=== PATIENT | male | born 1960 | race Caucasian/White ===

== ENCOUNTER 2021-10-12 09:18 | Day surgery (SDC) | payer BC, MEDICAID ==
[2021-10-07 15:15] LABS: BASOPHILS # (AUTO) 0.1 X10'3 (0-0.2); BASOPHILS % (AUTO) 0.8 % (0-1); EOSINOPHILS # (AUTO) 0.3 X10'3 (0-0.9); LYMPHOCYTES # (AUTO) 1.9 X10'3 (1.1-4.8); LYMPHOCYTES % (AUTO) 20.6 % (21-51); MEAN CORPUSCULAR HEMOGLOBIN 28.1 PG (27.0-31.0); MEAN CORPUSCULAR HGB CONC 33.6 g/dL (33.0-36.5); MEAN CORPUSCULAR VOLUME 83.6 FL (78-98); MONOCYTES # (AUTO) 0.7 X10'3 (0-0.9); MONOCYTES % (AUTO) 7.2 % (2-12); NEUTROPHILS # (AUTO) 6.4 X10'3 (1.8-7.7); NEUTROPHILS % (AUTO) 68.4 % (42-75); PRE OP HEMATOCRIT 42.3 % (42.0-52.0); PRE OP HEMOGLOBIN 14.2 g/dL (14.0-17.9); PRE OP PLATELET COUNT 255 X10'3 (140-440); RED BLOOD COUNT 5.06 X10'6 (4.70-6.10); RED CELL DISTRIBUTION WIDTH 13.4 % (11.5-14.5)
[2021-10-07 15:28] LABS: ALBUMIN 3.7 G/DL (3.4-5.0); ALBUMIN/GLOBULIN RATIO 1.1 (1.1-1.5); ALKALINE PHOSPHATASE 107 IU/L (46-116); BLOOD UREA NITROGEN 19 MG/DL (7-18); BUN/CREATININE RATIO 22.4 (5.4-32.0); CALCIUM 8.6 MG/DL (8.5-10.1); CHLORIDE 103 MMOL/L (99-107); CREATININE 0.85 MG/DL (0.60-1.10); PRE OP ALT 30 U/L (30-65); PRE OP ANION GAP 8 (8-16); PRE OP AST 15 U/L (10-37); PRE OP BILIRUB, TOTAL 0.4 MG/DL (0.0-1.0); PRE OP GLUCOSE 101 MG/DL (70-104); PRE OP POTASSIUM 4.3 MMOL/L (3.4-5.1); PRE OP SODIUM 136 MMOL/L (135-145); TOTAL CARBON DIOXIDE 25.1 MMOL/L (24-32); TOTAL PROTEIN 7.2 G/DL (6.4-8.2); eGFR > 90 ML/MIN
[2021-10-12] VITALS (21 sets, daily range): BP systolic 122–158; BP diastolic 64–94
[~2021-10-12] VITALS: Ht 182.9 cm; Wt 122.0 kg
[2021-10-12] MEDS: potassium cl 20mEq in 1/2 NS 1,000 ML IV SCH ×2 (06:55→14:55)
[~2021-10-12 09:18] MED LIST: HYDROcodone/acetaminophen 10/325mg tab PO PRN; HYDROmorphone 1 mg/ml syringe IV PRN; HYDROmorphone inj. 0.5 MG/0.5 ML DISP.SYRIN IV PRN; NO HOME MEDS; acetaminophen 325mg tablet PO ONE; acetaminophen 325mg tablet PO PRN; bisacodyl 10mg suppository rectal RC PRN; ceFAZolin inj. 3,000 MG in normal saline 100ml IV soln 100 ML IV ONE; ceFAZolin/D5W- 1GM premix 50 ML IV SCH; celeCOXIB 100mg capsule PO ONE; diphenhydrAMINE 25mg capsule PO PRN; famotidine 20mg tablet PO ONE; gabapentin 300mg capsule PO ONE; magnesium hydroxide 30ml (MOM) UD suspension PO PRN; metoclopramide 5 mg/ml inj IV ONE; naloxone 0.4 mg/ml inj IV PRN; ondansetron/PF 4mg/2ml inj IV PRN; oxyCODONE SR 10mg (sust. release) tab -2 tabs (20mg) PO ONE; ringers solution, lacted 1,000 ML IV SCH; tranexamic acid inj. 1,000 MG in 0.7% saline 100 ML PMX IV ONE; vancomycin 1,500 MG in NS 300ml IV soln IV ONE
[2021-10-12] MEDS: ringers solution, lacted 1,000 ML IV SCH ×2 (10:16→18:43)
--- NOTE | 2021-10-12 11:10 | NUR ---
CSM INTACT, OINTMENT AND DVD AND SHOWERS DONE PER MD ORDER.
--- NOTE | 2021-10-12 11:10 | NUR ---
CLARIFICATION, ACTUAL DVD ONLINE DO TO SHORTAGE OF AVAILABILITY
--- NOTE | 2021-10-12 12:00 | NUR ---
correction to previous note on prep, patient did not use ointment, not ordered by physician.
[2021-10-12] MEDS ORDERED: ringers solution, lacted 1,000 ML IV SCH (12:45)
[2021-10-12] MEDS ORDERED: labetalol 20mg/4ml (5mg/ml) syringe IV PRN (12:45)
[2021-10-12] MEDS ORDERED: morphine 2 MG/ML inj. syringe IV PRN (12:45)
[2021-10-12] MEDS ORDERED: hydrALAZINE 20mg/ml inj. IV PRN (12:45)
[2021-10-12] MEDS ORDERED: ondansetron/PF 4mg/2ml inj IV PRN (12:45)
[2021-10-12] MEDS ORDERED: morphine 4 MG/ML inj SYRINge IV PRN (12:45)
[2021-10-12] MEDS ORDERED: fentaNYL/PF 50MCG/1 ML 2ML syringe IV PRN ×2 (12:45)
[2021-10-12] MEDS ORDERED: ketorolac trometh. 30mg/ml inj. ONE (13:37)
[2021-10-12] MEDS ORDERED: ROPIVAcaine 0.5% (5mg/ml) 30ml vial ONE (13:38)
[2021-10-12] MEDS ORDERED: cloNIDine hcl/PF 100mcg/ml inj ONE (13:38)
[2021-10-12] MEDS ORDERED: vancomycin 1,000mg inj ONE (13:38)
[2021-10-12] MEDS ORDERED: fentaNYL/PF 50MCG/1 ML 2ML syringe ONE (14:33)
[2021-10-12] MEDS ORDERED: MIDAZolam 1mg/ml 10ml vial ONE (14:33)
[2021-10-12] MEDS ORDERED: ePHEDrine 50MG/ML INJ. ONE (15:31)
[2021-10-12] MEDS ORDERED: epiNEPHrine 1 mg/ml inj SQ ONE (15:35)
[2021-10-12] MEDS: cefazolin/dext.iso 2gm/100ml 100 ML IV SCH (16:00)
--- NOTE | 2021-10-12 16:00 | NUR ---
Received from OR via HOSPITAL BED , accompanied by Anesthesiologist DR CRANE and report given by Anesthesiolgist. PT PRESNTS WITH PIV 18G LEFT AC, RIGHT KNEE IMOBILIZER WITH ROBI DRESSING ON RIGHT HIP, VSS. Addendum: 10/12/21 at 1624 by Mia Love RN, RN Amended: Links added.
[2021-10-12] MEDS ORDERED: tranexamic acid inj. 1,200 MG in normal saline 100ml IV soln 88 ML IV ONE ×2 (17:00→19:30)
--- NOTE | 2021-10-12 17:30 | NUR ---
Report called to receiving nurse ANG HARDING. Transferred via HOSPITAL BED TO ROOM 402 WITH 2 PT BELONGING BAGS. PT TRANSFERED BY OR TECHS Special Issues communicated to receiving nurse. Addendum: 10/12/21 at 1736 by Mia Love RN, RN Amended: Links added.
--- NOTE | 2021-10-12 18:27 | NUR ---
Problems reprioritized. Patient report given, questions answered & plan of care reviewed with BECCA HUDSON RN.
--- NOTE | 2021-10-12 18:30 | NUR ---
Patient in room [facility]TH[facility] 4021. I have received report from ANG HARDING and had the opportunity to ask questions and assume patient care.
[2021-10-12] MEDS: gabapentin 300mg capsule PO SCH (19:57)
[2021-10-12] MEDS: HYDROcodone/acetaminophen 10/325mg tab PO PRN (19:59)
[2021-10-12] MEDS ORDERED: vancomycin inj 1,750 MG in normal saline 500ml IV soln 350 ML IV ONE (20:00)
[2021-10-12] MEDS ORDERED: sennosides 8.6mg tablet PO SCH (21:00)
[2021-10-13] MEDS: cefazolin/dext.iso 2gm/100ml 100 ML IV SCH (00:09)
[2021-10-13] MEDS: potassium cl 20mEq in 1/2 NS 1,000 ML IV SCH ×2 (00:15→08:45)
[2021-10-13 02:00] VITALS: BP 143/89
[2021-10-13] MEDS: HYDROcodone/acetaminophen 10/325mg tab PO PRN (05:41)
[2021-10-13 06:00] VITALS: BP 114/62
--- NOTE | 2021-10-13 06:25 | NUR ---
Problems reprioritized. Patient report given, questions answered & plan of care reviewed with ABHILASH HARDING.
--- NOTE | 2021-10-13 06:28 | NUR ---
Patient in room 3021A. I have received report from MEHDI Rodriguez and had the opportunity to ask questions and assume patient care.
[2021-10-13 06:49] LABS: BASOPHILS % (AUTO) 0.5 % (0-1); EOSINOPHILS # (AUTO) 0.2 X10'3 (0-0.9); EOSINOPHILS % (AUTO) 3.4 % (0-6); HEMATOCRIT 36.5 % (42.0-52.0); HEMOGLOBIN 12.6 g/dl (14.0-17.9); LYMPHOCYTES # (AUTO) 1.3 X10'3 (1.1-4.8); LYMPHOCYTES % (AUTO) 19.2 % (21-51); MEAN CORPUSCULAR HGB CONC 34.6 g/dL (33.0-36.5); MEAN CORPUSCULAR VOLUME 83.6 FL (78-98); MEAN PLATELET VOLUME 7.1 FL (7.4-10.4); MONOCYTES # (AUTO) 0.6 X10'3 (0-0.9); MONOCYTES % (AUTO) 8.4 % (2-12); NEUTROPHILS # (AUTO) 4.7 X10'3 (1.8-7.7); NEUTROPHILS % (AUTO) 68.5 % (42-75); PLATELET COUNT 195 X10'3 (140-440); RED BLOOD COUNT 4.37 X10'6 (4.70-6.10); RED CELL DISTRIBUTION WIDTH 13.6 % (11.5-14.5); WHITE BLOOD COUNT 6.9 X10'3 (4.5-11.0)
[2021-10-13 07:07] LABS: ANION GAP 5 (8-16); CHLORIDE 104 MMOL/L (99-107); POTASSIUM 4.1 MMOL/L (3.5-5.1); SODIUM 135 MMOL/L (135-145)
[2021-10-13] MEDS ORDERED: multivitamins, therapeutics tablet PO SCH (08:00)
[2021-10-13] MEDS ORDERED: aspirin 325mg tablet PO SCH (08:30)
[2021-10-13] MEDS: gabapentin 300mg capsule PO SCH (08:45)
[2021-10-13 10:00] VITALS: BP 110/77
--- NOTE | 2021-10-13 12:55 | NUR ---
Patient S/P right Total Hip Arthroplasty; ROBI dressing in place. All discharge and post-operative care instructions given, and patient verbalized understanding to all. Patient aware to call Doctor's office for any questions or concerns. IV discontinued. All personal belongings and assistive device sent home with patient. Patient escorted out by PCT in wheelchair to [facility] entrance to private vehicle.
[2021-10-13] MEDS ORDERED: celeCOXIB 100mg capsule PO SCH (20:00)
== END 2021-10-13 12:10 | disposition home or self-care (01) ==
LOC: PAS 09:18 → ORTHO 4S 17:50 → UNDOADMIN 17:58 → PAS 10-13 12:10
PROVIDERS: ATTEND Orthopaedic Surgery
DX: M16.11 Unilateral primary osteoarthritis, right hip (principal); E66.01 Morbid (severe) obesity due to excess calories; Z68.36 Body mass index [BMI] 36.0-36.9, adult; K21.9 Gastro-esophageal reflux disease without esophagitis; Z79.01 Long term (current) use of anticoagulants; Z79.899 Other long term (current) drug therapy
CPT/HCPCS: 27130; 36415; 72170; 80051; 80053; 82948; 85025; 85610; 85730; 86885; 86900; 86901; 87081; 97110; 97116; 97161; 97530; C1776; J0171; J0690; J0735; J1170; J1885; J2250; J2765; J2795; J3010; J3370; J3480; J3490; J7030; J7040; J7120; Z7506; Z7508; Z7512; A7000; G0378

== ENCOUNTER → 2022-06-09 | Outpatient (CLI) | payer BC, MEDICAID ==
[~2022-06-09] VITALS: Ht 182.9 cm; Wt 124.7 kg
[~2022-06-09] MED LIST changes: -HYDROcodone/acetaminophen 10/325mg tab PO PRN; -HYDROmorphone 1 mg/ml syringe IV PRN; -HYDROmorphone inj. 0.5 MG/0.5 ML DISP.SYRIN IV PRN; -acetaminophen 325mg tablet PO PRN; -bisacodyl 10mg suppository rectal RC PRN; -ceFAZolin/D5W- 1GM premix 50 ML IV SCH; -diphenhydrAMINE 25mg capsule PO PRN; -magnesium hydroxide 30ml (MOM) UD suspension PO PRN; -naloxone 0.4 mg/ml inj IV PRN; -ondansetron/PF 4mg/2ml inj IV PRN; -tranexamic acid inj. 1,000 MG in 0.7% saline 100 ML PMX IV ONE; +tranexamic acid inj. 1,000 MG in normal saline IV soln 100ML IV ONE
[2022-06-09 12:01] LABS: BASOPHILS # (AUTO) 0.1 X10'3 (0-0.2); BASOPHILS % (AUTO) 0.8 % (0-1); EOSINOPHILS # (AUTO) 0.2 X10'3 (0-0.9); EOSINOPHILS % (AUTO) 2.8 % (0-6); LYMPHOCYTES # (AUTO) 2.1 X10'3 (1.1-4.8); LYMPHOCYTES % (AUTO) 29.3 % (21-51); MEAN CORPUSCULAR HEMOGLOBIN 28.4 PG (27.0-31.0); MEAN CORPUSCULAR HGB CONC 33.4 g/dL (33.0-36.5); MEAN PLATELET VOLUME 7.1 FL (7.4-10.4); MONOCYTES # (AUTO) 0.4 X10'3 (0-0.9); MONOCYTES % (AUTO) 6.2 % (2-12); NEUTROPHILS # (AUTO) 4.3 X10'3 (1.8-7.7); NEUTROPHILS % (AUTO) 60.9 % (42-75); PRE OP HEMATOCRIT 45.8 % (42.0-52.0); PRE OP HEMOGLOBIN 15.3 g/dL (14.0-17.9); PRE OP PLATELET COUNT 232 X10'3 (140-440); RED BLOOD COUNT 5.39 X10'6 (4.70-6.10); RED CELL DISTRIBUTION WIDTH 14.2 % (11.5-14.5)
[2022-06-09 12:13] LABS: ALBUMIN 3.8 G/DL (3.4-5.0); ALBUMIN/GLOBULIN RATIO 1.1 (1.1-1.5); ALKALINE PHOSPHATASE 96 IU/L (46-116); BLOOD UREA NITROGEN 14 MG/DL (7-18); BUN/CREATININE RATIO 14.4 (5.4-32.0); CALCIUM 8.9 MG/DL (8.5-10.1); CHLORIDE 104 MMOL/L (99-107); CREATININE 0.97 MG/DL (0.60-1.10); PRE OP ALT 31 U/L (30-65); PRE OP ANION GAP 2 (8-16); PRE OP AST 23 U/L (10-37); PRE OP BILIRUB, TOTAL 0.5 MG/DL (0.0-1.0); PRE OP GLUCOSE 97 MG/DL (70-104); PRE OP SODIUM 136 MMOL/L (135-145); TOTAL PROTEIN 7.2 G/DL (6.4-8.2); eGFR 79 ML/MIN
== END | disposition home or self-care (01) ==
LOC: LAB 08:00 → EDSTATUS 06-16 08:45
PROVIDERS: ATTEND Orthopaedic Surgery
DX: Z01.818 Encounter for other preprocedural examination (principal); M16.12 Unilateral primary osteoarthritis, left hip
CPT/HCPCS: 36415; 80053; 85025; 86885; 86900; 86901; 87081; J0690; J3370; J3490; J7040; J7120